=== PATIENT | female | born 1995 | race Hispanic/Latino ===

== ENCOUNTER 2017-06-24 19:23 | Emergency (ER) | payer OTHER ==
[~2017-06-24] VITALS: Ht 167.6 cm; Wt 47.7 kg
[2017-06-24 19:31] VITALS: BP 105/59
[2017-06-24] MEDS ORDERED: ACET1TAB17 PO (19:36)
[2017-06-24] MEDS ORDERED: ONDANSETRON 4MG/2ML VIAL (J2405) IV ONE (20:45)
== END 2017-06-24 21:20 | disposition home or self-care (01) ==
LOC: M ED 19:23
DX: J02.8 Acute pharyngitis due to other specified organisms (principal)
CPT/HCPCS: 87880; 96374; 99283; J2405